=== PATIENT | male | born 1995 | race Caucasian/White ===

== ENCOUNTER 2019-09-04 12:34 | Emergency (ER) | payer BC, SELFPAY ==
[2019-09-04 12:44] VITALS: BP 126/80; PULSE 113; RESP 22; TEMP 37.4; O2SAT 100
--- NOTE | 2019-09-04 13:03 | ED.SKABFB ---
HPI - Skin/Abscess/Foreign Bdy General Chief complaint: Skin/Abscess/Foreign Body Stated complaint: Pos Skin Abcess Source: patient Mode of arrival: ambulatory Limitations: no limitations History of Present Illness HPI narrative: 24 year old male presents to urgent care with complaints of possible boil to right groin X 2 weeks -- pt reports that the area started draining today. Patient denies fever, bites, chills, nausea, vomiting or diarrhea. Patient denies previous abscess. MD complaint: abscess/boil Onset (ago): week(s) (2) Relieving factors: none Exacerbating factors: none Context: none Related Data Home Medications Medication Instructions Recorded Confirmed [id number] ala 1 tablet PO DAILY 09/04/19 09/04/19 [Biktarvy] citalopram 40 mg PO DAILY 09/04/19 09/04/19 Allergies Allergy/AdvReac Type Severity Reaction Status Date / Time No Known Allergies Allergy Unverified 12/07/18 12:58 Review of Systems Review of Systems: All systems reviewed & are unremarkable except as noted in HPI and below Constitutional: Constitutional: Denies chills, Denies fatigue, Denies fever(s) and Denies weakness ENT: Denies dysphagia, Denies dizziness, Denies epistaxis and Denies sore throat Cardiovascular: Cardiovascular: Denies chest pain, Denies rapid heart rate and Denies radiating jaw, neck or arm pain Respiratory: Respiratory: Denies wheezing Gastrointestinal: Gastrointestinal: Denies abdominal pain, Denies diarrhea, Denies nausea and Denies vomiting Musculoskeletal: Musculoskeletal: Denies back pain, Denies joint swelling and Denies muscle cramps Integumentary/Breasts: Skin/Breast: Reports as per HPI Comments: possible abscess to right groin Neurologic: Denies vertigo, Denies dizziness, Denies syncope and Denies focal weakness [facility] Past Medical History Medical History Anxiety Depression HIV positive Family History Family History Grandparent Diabetes mellitus Family history of cardiovascular disease Father Hypertension Sibling Family history of malignant neoplasm of brain Social History Social History Smoking status: Former smoker Second hand tobacco smoke exposure: No Smoking end date: 06/27/17 Alcohol intake: current Exam Const: General: healthy appearing, no acute distress and alert Orientation/consciousness: patient oriented x3 Limitations: no limitations Neck: Neck: normal visual inspection and no lymphadenopathy Resp: Effort & Inspection: normal respiratory effort and not tachypneic Auscultation: clear to auscultation bilaterally and no wheezes Cardio: Rate: regular rate Rhythm: regular rhythm Heart sounds: no murmurs Skin: General skin exam: normal color, no jaundice and no pallor Other: 2 cm area of erythema, warmth and swelling noted to right groin representing an abscess -- there is a pin point open area noted to center of 2 cm region that is currently not draining. There is no fluctuance, induration, streaking erythema, necrotic tissue or bleeding noted Extrem: General: normal to inspection and no edema Psych: Appearance: grossly normal Mental Status: mental status grossly normal Affect: normal affect Attitude: cooperative Thought content: Yes Normal thought content present Course Vital Signs Vital signs: Vital Signs Temperature 37.4 C 09/04/19 12:44 Pulse Rate 113 H 09/04/19 12:44 Respiratory Rate 22 H 09/04/19 12:44 Blood Pressure 126/80 09/04/19 12:44 Pulse Oximetry 100 09/04/19 12:44 Temperature 37.4 C 09/04/19 12:44 Pulse Rate 113 H 09/04/19 12:44 Respiratory Rate 22 H 09/04/19 12:44 Blood Pressure 126/80 09/04/19 12:44 Pulse Oximetry 100 09/04/19 12:44 MDM - Skin/Abscess/Foreign Bdy MDM Narrative Medical decision making narrative: Wound ca
== END 2019-09-04 13:15 | disposition home or self-care (01) ==
PROVIDERS: Emergency Provider Nurse Practitioner Family; PCP Family Medicine
DX: L02.214 Cutaneous abscess of groin (principal); Z21 Asymptomatic human immunodeficiency virus [HIV] infection status; F41.9 Anxiety disorder, unspecified; F32.9 Major depressive disorder, single episode, unspecified; Z87.891 Personal history of nicotine dependence
CPT/HCPCS: 99213; G0463

== ENCOUNTER 2024-03-01 16:02 | Emergency (ER) | payer BC, SELFPAY ==
[2024-03-01 16:13] VITALS: BP 137/75; PULSE 97; RESP 16; TEMP 36.9; O2SAT 99
--- NOTE | 2024-03-01 16:47 | ED.SKABFB ---
HPI - Skin/Abscess/Foreign Bdy General Chief complaint: Skin/Abscess/Foreign Body Stated complaint: spider bite Time Seen by Provider: 03/01/24 16:46 Source: patient Mode of arrival: ambulatory Limitations: no limitations History of Present Illness HPI narrative: This is a 29-year-old with history of HIV, levels undetectable male who presents for possible spider bite to the right upper arm. States that he has had some aching around the site of the wound. He knows a friend who recently had spider bite and had debridement which which is making him very anxious. Denies fevers, chills, nausea, vomiting, numbness, weakness. Related Data Allergies Allergy/AdvReac Type Severity Reaction Status Date / Time No Known Allergies Allergy Verified 03/01/24 16:16 Review of Systems Review of Systems: All systems as dictated in [facility] Past Medical History Medical History (Updated 03/01/24 @ 16:49 by Terrance Linda PA-C) Anxiety Depression HIV positive Family History Family History Grandparent Diabetes mellitus Family history of cardiovascular disease Father Hypertension Sibling Family history of malignant neoplasm of brain Social History Social History (Updated 10/09/21 @ 14:36 by Dalila Dale [facility]) Smoking status: Former smoker Tobacco type: cigarettes Second hand tobacco smoke exposure: No Smoking end date: 06/27/17 Alcohol intake: current Drinks per week: 3 Substance use: never Substance use type: marijuana Other substance usage details: medical cannibis-smokes, edibles Last use: 10/09/2021 Occupation/Education: occupation Exam Narrative: GENERAL: Well-appearing, well-nourished, and in no acute distress. HEAD: Normocephalic, atraumatic. EYES: PERRLA and EOMI. ENT: Nares clear, no rhinorrhea or epistaxis. Mucous membranes moist. Oropharynx without tonsillar hypertrophy exudate or other lesions. NECK: Supple. No adenopathy or masses. CHEST: No respiratory distress. Clear to auscultation. No wheezes rales or rhonchi HEART: Regular rate and rhythm. No murmur heard. Normal peripheral pulses. ABDOMEN: Soft, nontender, nondistended, normal active bowel sounds. MSK: Normal range of motion. No edema. SKIN: Right upper arm with small scabbed lesion. Minimal surrounding erythema or tenderness. Bilateral upper extremities skin exams are obscured by tattoos, however there does not appear to be any significant swelling or erythema. No necrotic appearing skin NEURO: Alert and oriented x4. No focal deficits. PSYCH: Normal mood and affect. Course Vital Signs Vital signs: Vital Signs Temperature 98.4 F 03/01/24 16:13 Pulse Rate 97 03/01/24 16:13 Respiratory Rate 16 03/01/24 16:13 Blood Pressure 137/75 03/01/24 16:13 Pulse Oximetry 99 03/01/24 16:13 Temperature 98.4 F 03/01/24 16:13 Pulse Rate 97 03/01/24 16:13 Respiratory Rate 16 03/01/24 16:13 Blood Pressure 137/75 03/01/24 16:13 Pulse Oximetry 99 03/01/24 16:13 MDM - Skin/Abscess/Foreign Bdy MDM Narrative Medical decision making narrative: This is a 29-year-old male who presents to the ED with chief complaint of right upper arm spider bite. Vitals are normal. Exam is benign overall. No necrotic appearing skin. No further workup needed at this point. Will prescribe prophylactic antibiotics with history of HIV. Pt will be discharged in stable condition. Return precautions given and supportive measures discussed. Pt is understanding and agreeable with plan for discharge and follow-up with PCP. Discharge Plan Discharge Clinical Impression: Spider bite Patient Disposition: Home, Self-Care Condition: Stable Instructions: Antibiotic Form Additional Instructions: Please take antibiotics as prescribed and use Benadryl [id number]. Symptoms should self resolve over the next 4-5 days. If you have a
== END 2024-03-01 17:21 | disposition home or self-care (01) ==
PROVIDERS: Emergency Provider Physician Assistant; PCP Family Medicine
DX: S41.152A Open bite of left upper arm, initial encounter (principal); W57.XXXA Bitten or stung by nonvenomous insect and other nonvenomous arthropods, initial encounter; Z21 Asymptomatic human immunodeficiency virus [HIV] infection status; Z87.891 Personal history of nicotine dependence; F12.90 Cannabis use, unspecified, uncomplicated
CPT/HCPCS: 99283

== ENCOUNTER 2024-04-06 06:36 | Outpatient (CLI) | payer BC, SELFPAY ==
--- NOTE | 2024-04-12 12:37 | WPDNEUROLOGY ---
Neurology EEG Report General Information Date of Study: 04/06/24 TEST Electroencephalogram DIAGNOSIS unspecified convulsions CONDITION OF RECORDING neurology lapse EEG NUMBER [id number] CLINICAL HISTORY history of unspecified convulsion EEG DESCRIPTION During wakefulness the background activity consists of posterior dominant alpha rhythm at 9 hertz with an amplitude of 20-40 microvolts which appears moderately formed and reactive to eye opening. Anteriorly low amplitude mixed frequency activity was seen. There is a good to posterior gradient. Hyperventilation and 46 should performed during which no significant abnormal background changes were seen. Patient did not progress to stage 2 sleep. IMPRESSION This is a normal EEG obtained during awake state.
== END 2024-04-06 06:37 | disposition home or self-care (01) ==
PROVIDERS: PCP Family Medicine; Visit Provider Student in an Organized Health Care Education/Training Program
DX: R56.9 Unspecified convulsions (principal)
CPT/HCPCS: 95816

== ENCOUNTER 2024-07-13 13:12 | Outpatient (CLI) | payer BC, SELFPAY ==
--- NOTE | ~2024-07-13 | CT_ITS ---
EXAMINATION: CT brain wo/w con DATE: 07/13/2024 13:39 INDICATION: Convulsions TECHNIQUE: Computed tomography (CT) of the head was performed without and with 100 mL Omnipaque-350 i ntravenous contrast. Sagittal and coronal reconstructions were performed. The mA was adjusted accordi ng to patient size. Iterative reconstruction technique was employed. The dose-length product was 1349 .03 mGy-cm. COMPARISON: None FINDINGS: No acute intracranial hemorrhage, acute infarction or abnormal extra axial fluid collection. Ventricl es are normal and symmetric. No mass/mass effect. No abnormally enhancing brain lesions. The orbits, paranasal sinuses and mastoid air cells are normal. IMPRESSION: 1. Normal pre and postcontrast head CT. Reviewed, dictated and finalized at location B. RMATION WRITER
== END 2024-07-13 13:13 | disposition home or self-care (01) ==
LOC: MICIMG 13:13
PROVIDERS: PCP Family Medicine; Visit Provider Family Medicine
DX: R56.9 Unspecified convulsions (principal)
CPT/HCPCS: 70470; Q9967